=== PATIENT | female | born 1955 | race African-American/Black ===

== ENCOUNTER 2021-12-27 01:40 | Observation (INO) ==
[2021-12-27 02:36] LABS: Basophils # 0.1 10*3/uL (0.0-0.2); Basophils % 0.7 % (0.0-0.8); Eosinophils % 0.6 % (0.00-10.9); Hematocrit 45.7 VOL% (35.7-47.0); Hemoglobin 15.3 GM/DL (12.0-16.0); Immature Granulocytes % 0.1 %; Immature Granulocytes Absolute 0.01 #; Lymphocytes # 2.4 10*3/uL (1.4-4.0); Lymphocytes % 34.8 % (21.3-54.2); Mean Corpuscular HGB Conc 33.5 GM/DL (32-36); Mean Corpuscular Volume 91.4 FL (87-102); Monocytes # 0.3 10*3/uL (0.11-0.8); Neutrophils % 59.8 % (38.7-73.9); Platelet Count 347 T/CUMM (130-400); Red Cell Distribution Width 14.6 % (9.3-17.3)
[2021-12-27 03:22] LABS: Alanine Aminotransferase 30 U/L (13-56); Albumin 3.7 G/DL (3.4-5.0); Alkaline Phosphatase 88 U/L (45-117); Aspartate Amino Transferase 18 U/L (0-37); Bilirubin,Total < 0.39 MG/DL (0.20-1.00); Blood Urea Nitrogen 14 MG/DL (7-18); Calcium 9.1 MG/DL (8.5-10.1); Carbon Dioxide 33 MMOL/L (21-32); Chloride 102 MMOL/L (98-107); Estimated Glom Filtration Rate 70 ML/MIN; Glucose 381 MG/DL (74-106); Osmolality,Calculated 297.3 MOS/KG (273-304); Potassium 2.8 MMOL/L (3.5-5.1); Sodium 141 MMOL/L (136-145); Total Protein 7.8 G/DL (6.4-8.2)
[2021-12-27] MEDS ORDERED: PANTOPRAZOLE 40 MG VIAL IV STA (04:09)
[2021-12-27] MEDS ORDERED: DILTIAZEM 50 MG/10 ML VIAL IV STA (04:09)
[2021-12-27] MEDS ORDERED: SODIUM CHLORIDE 0.9% 1,000 ML IV STA (04:09)
[2021-12-27] MEDS ORDERED: ONDANSETRON 4 MG/2 ML VIAL IV STA (04:09)
[2021-12-27] MEDS ORDERED: INSULIN REGULAR 100 UNIT/ML SUBCUT STA (04:10)
[2021-12-27] MEDS ORDERED: POTASSIUM CHLORIDE RIDER 20 MEQ/100 ML PREMIX IV STA (04:11)
[2021-12-27] MEDS ORDERED: hydrALAZINE 20 MG/1 ML VIAL IV PRN (04:49)
[2021-12-27] MEDS ORDERED: ACETAMINOPHEN 325 MG TABLET PO PRN (04:49)
[2021-12-27] MEDS ORDERED: DEXTROSE 10% 250 ML BAG IV PRN (04:49)
[2021-12-27] MEDS ORDERED: GLUCAGON 1 MG VIAL IM PRN (04:49)
[2021-12-27] MEDS ORDERED: NICOTINE 21 MG/24 HR PATCH TRANSDERM PRN (04:49)
[2021-12-27] MEDS: DILTIAZEM INJ 100 MG in SODIUM CHLORIDE 0.9% 100 ML IV SCH (04:50)
[2021-12-27] MEDS: POTASSIUM CHLORIDE RIDER 10 MEQ/100 ML PREMIX IV SCH ×2 (04:57→05:56)
[2021-12-27] MEDS ORDERED: MAGNESIUM SULF RIDER 4 GM/100 ML PREMIX IV PRN (04:58)
[2021-12-27] MEDS ORDERED: POTASSIUM CHLORIDE 20 MEQ TABLET PO PRN (04:58)
[2021-12-27] MEDS ORDERED: MAGNESIUM SULF RIDER 2 GM/50 ML PREMIX IV PRN (04:58)
[2021-12-27] MEDS ORDERED: POTASSIUM CHLORIDE RIDER 10 MEQ/100 ML PREMIX IV PRN (04:58)
[2021-12-27 05:26] LABS: Risk Ratio 4.11; VLDL Cholesterol 28.4 MG/DL
[2021-12-27] MEDS: LACTATED RINGERS 1,000 ML IV SCH ×2 (07:26→20:44)
[2021-12-27] MEDS ORDERED: METOPROLOL TARTRATE 25 MG TABLET PO SCH (09:00)
[2021-12-27] MEDS: INSULIN REGULAR 100 UNIT/ML SUBCUT SCH ×4 (09:02→20:47)
[2021-12-27] MEDS: ONDANSETRON 4 MG/2 ML VIAL IV PRN ×3 (09:20→21:03)
[2021-12-27] MEDS: DOCUSATE SODIUM 100 MG CAPSULE PO SCH ×2 (09:24→20:46)
[2021-12-27] MEDS: POLYETHYLENE GLYCOL POWDER 17 GM PACK PO SCH (09:27)
[2021-12-27] MEDS: ROSUVASTATIN 20 MG TABLET PO SCH (09:40)
[2021-12-27] MEDS ORDERED: DILTIAZEM CD 120 MG CAPSULE PO SCH (10:30)
[2021-12-27] MEDS: ASCORBIC ACID 500 MG TABLET PO SCH ×2 (11:50→20:46)
[2021-12-27 12:15] LABS: Calcium 8.5 MG/DL (8.5-10.1); Osmolality,Calculated 293.7 MOS/KG (273-304); Potassium 3.5 MMOL/L (3.5-5.1)
[2021-12-27] MEDS ORDERED: POTASSIUM CHLORIDE 20 MEQ TABLET PO ONE (12:36)
[2021-12-27] MEDS ORDERED: MAGNESIUM SULF RIDER 2 GM/50 ML PREMIX IV ONE (12:37)
[2021-12-27 14:16] LABS: Mucus,Urine Occasional /LPF (Occasional); Protein,Urine 30 mg/dL (Negative); RBC,Urine 4 /HPF (0-4); Squamous Epithelial Cell,Urine Occasional /HPF (0-10); Urine Appearance Clear (Clear); Urine Color Yellow (Yellow)
[2021-12-27 14:17] LABS: Bilirubin,Urine Negative (Negative); Blood, Urine Negative (Negative); Glucose,Urine (UA) 100 mg/dL (Negative); Ketones,Urine Negative (Negative); Nitrite,Urine Negative (Negative); Urine Urobilinogen 0.2 eU/dL (<2.0)
[2021-12-27 14:26] LABS: Barbiturates Screen,Urine Negative (Negative); Benzodiazepines Screen,Urine Negative (Negative); Cannabinoid Screen,Urine Negative (Negative); Opiate Screen,Urine Negative (Negative); Phencyclidine Screen,Urine Negative (Negative)
[2021-12-27] MEDS: METOPROLOL TARTRATE 25 MG TABLET PO SCH (20:46)
[2021-12-27] MEDS: PANTOPRAZOLE 40 MG VIAL IV SCH (20:51)
[2021-12-28] MEDS: DILTIAZEM INJ 100 MG in SODIUM CHLORIDE 0.9% 100 ML IV SCH (03:40)
[2021-12-28] MEDS: LACTATED RINGERS 1,000 ML IV SCH ×2 (03:40→08:10)
[2021-12-28 04:52] LABS: Basophils # 0.1 10*3/uL (0.0-0.2); Basophils % 0.7 % (0.0-0.8); Eosinophils # 0.1 10*3/uL (0.0-0.87); Eosinophils % 1.2 % (0.00-10.9); Hematocrit 41.1 VOL% (35.7-47.0); Hemoglobin 13.5 GM/DL (12.0-16.0); Immature Granulocytes % 0.1 %; Immature Granulocytes Absolute 0.01 #; Lymphocytes # 4.4 10*3/uL (1.4-4.0); Lymphocytes % 54.6 % (21.3-54.2); Mean Corpuscular HGB Conc 32.8 GM/DL (32-36); Mean Corpuscular Volume 92.2 FL (87-102); Mean Platelet Volume 10.1 FL (9.6-12.0); Monocytes # 0.5 10*3/uL (0.11-0.8); Monocytes % 5.7 % (1.7-12.7); Neutrophils % 37.7 % (38.7-73.9); Platelet Count 267 T/CUMM (130-400); Red Blood Count 4.46 MC/CUMM (3.8-5.5)
[2021-12-28 05:06] LABS: Calcium 8.2 MG/DL (8.5-10.1); Osmolality,Calculated 289.8 MOS/KG (273-304); Potassium 3.2 MMOL/L (3.5-5.1)
[2021-12-28 05:27] LABS: Eosinophils 3 % (0-10); Lymphocytes 60 % (20-55); Platelet Estimate Adequate; Total Cells Counted 100
[2021-12-28] MEDS ORDERED: POTASSIUM CHLORIDE 20 MEQ TABLET PO ONE (07:47)
[2021-12-28] MEDS ORDERED: MAGNESIUM SULF RIDER 2 GM/50 ML PREMIX IV ONE (07:48)
[2021-12-28] MEDS: ONDANSETRON 4 MG/2 ML VIAL IV PRN (08:20)
[2021-12-28] MEDS ORDERED: DILTIAZEM CD 240 MG CAPSULE PO SCH (09:00)
[2021-12-28] MEDS: POLYETHYLENE GLYCOL POWDER 17 GM PACK PO SCH (09:40)
[2021-12-28] MEDS: ASCORBIC ACID 500 MG TABLET PO SCH (09:41)
[2021-12-28] MEDS: DOCUSATE SODIUM 100 MG CAPSULE PO SCH (09:41)
[2021-12-28] MEDS: ROSUVASTATIN 20 MG TABLET PO SCH (09:41)
[2021-12-28] MEDS: METOPROLOL TARTRATE 25 MG TABLET PO SCH (09:41)
[2021-12-28] MEDS: INSULIN REGULAR 100 UNIT/ML SUBCUT SCH (09:42)
[2021-12-28] MEDS: PANTOPRAZOLE 40 MG VIAL IV SCH (09:45)
[2021-12-28 12:30] VITALS: BP 169/90
== END 2021-12-28 12:59 | disposition home or self-care (01) ==
LOC: N.EDINP 01:40 → N.ED 01:40 → N.TELEN 14:06
PROVIDERS: ADMIT Internal Medicine; ATTEND Internal Medicine